=== PATIENT | male | born 1955 | race Caucasian/White ===

== ENCOUNTER → 2024-11-21 08:57 | Outpatient (REF) | payer OTHER, SELFPAY | LOC: PAVMRI 08:57 | PROVIDERS: ATTENDING PHYSICIAN Family Medicine | DX: R56.9 Unspecified convulsions (principal) | CPT/HCPCS: 70553; A9575 ==

== ENCOUNTER → 2024-11-26 12:54 | Outpatient (REF) | payer OTHER, SELFPAY | LOC: RAD 12:54 | PROVIDERS: ATTENDING PHYSICIAN Family Medicine | DX: I63.9 Cerebral infarction, unspecified (principal) | CPT/HCPCS: 93880; 95813 ==

== ENCOUNTER → 2024-11-28 10:25 | Outpatient (REF) | payer OTHER, SELFPAY ==
--- NOTE | 2024-11-26 17:48 | EEGC.RPT ---
Continuous EEG Report
Recording
Start Date of Data Reviewed: 11/26/24
Done with Video Recording: Yes
Electrocardiogram: Unremarkable
Report
TECHNICAL REMARKS: This is a technically satisfactory eighteen channel record employing 21 disc electrodes applied according to a measured international 10-20 electrode placement system. There were no significant technical difficulties. The study
was done on a [employer] System.
CLINICAL HISTORY: This is a 69-year-old man with history of syncope. This study was requested to look for epileptiform abnormalities.
MEDICATION: Aspirin
STUDY DURATION: 2 hours, 6 seconds
REPORT: At the onset of the EEG, the patient is awake. The background activity consists of 9.0-9.5 Hz, persistent, posteriorly dominant, moderate amplitude, symmetric and rhythmic activity that is reactive to eye-opening. Anteriorly, it consists of
a mixture of low voltage indeterminate activity and 20-25 Hz, persistent, low amplitude, symmetric and rhythmic activity. Stepwise intermittent photic stimulation (1-31 Hz) does not induce any abnormalities. Hyperventilation was not performed.
Drowsiness is characterized by low amplitude mixed frequency activity, decreased eye blinking, and muscle artifact. N2 sleep was reached.
IMPRESSION: This is a normal awake and asleep EEG. There is no evidence of focal slowing or epileptiform activity. A normal EEG does not rule out epilepsy. If the clinical picture warrants, a sleep-deprived awake and sleep record may be helpful.
--- NOTE | 2024-11-28 11:31 | PTCARENOTE ---
Pt here for Echo and Bubble Study. Right median antecubital 22 G PC inserted first attempt, rapid blood return. Bubble Study completed per protocol with aseptic technique. Pt tolerated procedure well, denies any dizziness. [facility] D/c ed at 1130,
site clear, no redness, no edema. Pressure held, no bleeding, 2x2 applied and taped. No change in status, offers no complaints.
== END ==
LOC: RCS 10:25
PROVIDERS: ATTENDING PHYSICIAN Family Medicine
DX: I63.9 Cerebral infarction, unspecified (principal)
CPT/HCPCS: 93306

== ENCOUNTER 2024-12-26 09:10 | Day surgery (SDC) | payer OTHER, SELFPAY | END 2024-12-26 11:15 | disposition home or self-care (01) | LOC: CATH 09:10 | PROVIDERS: ATTENDING PHYSICIAN Nuclear Medicine Nuclear Cardiology; FAMILY PHYSICIAN Family Medicine; OTHER PHYSICIAN Internal Medicine Cardiovascular Disease | DX: I08.3 Combined rheumatic disorders of mitral, aortic and tricuspid valves (principal); I70.0 Atherosclerosis of aorta; Z86.73 Personal history of transient ischemic attack (TIA), and cerebral infarction without residual deficits | CPT/HCPCS: 93312; 93320; 93325 ==